=== PATIENT | male | born 1980 | race Caucasian/White ===

== ENCOUNTER 2017-03-08 12:46 | Emergency (ER) | payer OTHER ==
[2017-03-08 13:10] VITALS: BP 125/82; O2SAT 98
[2017-03-08] MEDS ORDERED: Naproxen 550 mg Tab PO STA (13:30)
[2017-03-08] MEDS ORDERED: Naproxen 550 mg Tab PO ONE (13:41)
--- NOTE | 2017-03-08 14:21 | C.PDOC ---
History Of Present Illness 36 y/o male presents to the ED for evaluation of left shoulder pain which began aorund 1 month ago. Patient states his pain is exacerbated by movement of his left arm in an upwards and sideways motion. 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 Otherwise, he denies direct trauma/injury to affected area, chest pain, or shortness of breath. Time Seen by Provider: 03/08/17 13:18 Chief Complaint (Nursing): Upper Extremity Problem/Injury History Per: Patient History/Exam Limitations: no limitations Onset/Duration Of Symptoms: Other (around 1 month ) Current Symptoms Are (Timing): Still Present Quality: "Pain" Exacerbating Factor(s): Movement (upwards and sideways ) Additional History Per: Patient Past Medical History Reviewed: Historical Data, Nursing Documentation, Vital Signs Vital Signs: Last Vital Signs Temp 98 F 03/08/17 14:41 Pulse 77 03/08/17 14:41 Resp 18 03/08/17 14:41 BP 125/82 03/08/17 13:08 Pulse Ox 98 03/08/17 21:06 - Medical History PMH: Back Problems Surgical History: Back Surgery Family History: States: Unknown Family Hx - Social History Hx Tobacco Use: Yes Hx Alcohol Use: No Hx Substance Use: No - Immunization History Hx Tetanus Toxoid Vaccination: No Hx Influenza Vaccination: No Hx Pneumococcal Vaccination: No Review Of Systems Except As Marked, All Systems Reviewed And Found Negative. Cardiovascular: Negative for: Chest Pain Respiratory: Negative for: Shortness of Breath Musculoskeletal: Positive for: Shoulder Pain (left ) Physical Exam - Physical Exam Appears: Non-toxic, No Acute Distress Skin: Normal Color, Warm, Dry, No Rash, No Ecchymosis Head: Atraumatic, Normacephalic Eye(s): bilateral: Normal Inspection, PERRL, EOMI Oral Mucosa: Moist Neck: Normal ROM, Supple Cardiovascular: Rhythm Regular, No Friction Rub, No Murmur Respiratory: Normal Breath Sounds, No Rales, No Rhonchi, No Wheezing Extremity: Normal ROM, Tenderness (lateral aspect of left shoulder ), Capillary Refill (less than 2 seconds ), No Deformity, No Swelling Pulses: Left Radial: Normal Neurological/Psych: Normal Speech, Normal Cognition, Normal Motor, Normal Sensation Gait: Steady ED Course And Treatment O2 Sat by Pulse Oximetry: 98 (on RA) Pulse Ox Interpretation: Normal - Other Rad shoulder XR X-Ray: Interpreted by Me, Viewed By Me, Read By Radiologist Interpretation: Accession No. : [id number]. Patient Name / ID : JOSELIN Olea / [id number]. Exam Date : 03/08/2017 13:33:53 ( Approved ). Study Comment : Sex / Age : M / 36Y. Creator : Benjy Hilliard MD. Dictator : Benjy Hilliard MD. Drafting Teacher : Scientific Programmer Analyst : Benjy Hilliard MD. Approver2 : Report Date : 03/08/2017 16:20:09. My Comment : . PROCEDURE: Radiographs of the Left Shoulder. HISTORY: shoulder pain, decreased ROM. COMPARISON: No prior. FINDINGS: BONES: Normal. No fracture. JOINTS: Normal. Glenohumeral and acromioclavicular joints preserved. No osteoarthritis. SOFT TISSUES: Normal. OTHER FINDINGS: None. IMPRESSION: Normal radiographs of the left shoulder. Medical Decision Making Medical Decision Making: Plan: * Left shoulder XR * Naproxen PO * reassess and disposition Progress: left shoulder XR ordered and reviewed. Pt received Naproxen PO. Sling was applied by technology instructor. On reassessment, patient is resting comfortably, showing no signs of distress, and reports an improvement in his pain. Patient is stable for discharge with Rx and is advised to f/u PMD within 1-2 days for further evaluation. Disposition - Disposition Referrals: [facility] [Outside] Disposition: HOME/ ROUTINE Disposition Time: 14:18 Condition: GOOD Additional Instructions: Follow up with the medical doctor within 1-2 days. Return if worsened. Prescriptions: Naproxen [Naprosyn] 500 mg PO BID #20 tab predniSONE [Prednisone] 10 mg PO BID #10 tab Instructions: Calcific Tendinitis (ED) - Clinical Impression Clinical Impression: Shoulder tendonitis - PA / TELEMETRY MONITOR / Resident Statement /DO has reviewed & agrees with the documentation as recorded. - Scribe Statement The provider has reviewed the documentation as recorded by the Scribe (Sadia Segovia) All medical record entries made by the Scribe were at my direction and personally dictated by me. I have reviewed the chart and agree that the record accurately reflects my personal performance of the history, physical exam, medical decision making, and the department course for this patient. I have also personally directed, reviewed, and agree with the discharge instructions and disposition.
[2017-03-08 14:42] VITALS: PULSE 77; RESP 18; TEMP 98
--- NOTE | 2017-03-08 16:21 | RAD ---
PROCEDURE: Radiographs of the Left Shoulder HISTORY: shoulder pain, decreased ROM COMPARISON: No prior. FINDINGS: BONES: Normal. No fracture. JOINTS: Normal. Glenohumeral and acromioclavicular joints preserved. No osteoarthritis. SOFT TISSUES: Normal. OTHER FINDINGS: None. IMPRESSION: Normal radiographs of the left shoulder.
== END 2017-03-08 14:42 | disposition home or self-care (01) ==
LOC: C.ER 12:46
DX: M75.32 Calcific tendinitis of left shoulder (principal)